=== PATIENT | female | born 1965 | race Caucasian/White ===

== ENCOUNTER 2019-02-07 17:09 | Emergency (ER) | payer OTHER ==
[~2019-02-07] VITALS: Ht 157.5 cm; Wt 77.1 kg
== END 2019-02-07 21:02 | disposition home or self-care (01) ==
LOC: ER 17:09
DX: G56.82 Other specified mononeuropathies of left upper limb (principal)

== ENCOUNTER 2020-10-12 11:16 | Emergency (ER) | payer OTHER ==
[~2020-10-12] VITALS: Ht 162.6 cm; Wt 77.1 kg
[2020-10-12] MEDS ORDERED: KETO10TA2 PO (13:21)
[2020-10-12] MEDS ORDERED: NORFLEX100MG PO (13:21)
== END 2020-10-12 13:25 | disposition home or self-care (01) ==
LOC: ER 11:16
DX: M25.521 Pain in right elbow (principal); M54.2 Cervicalgia